=== PATIENT | male | born 1970 | race Caucasian/White ===

== ENCOUNTER 2024-04-10 11:09 | Outpatient (RCR) | payer OTHER, SELFPAY | END 2024-04-10 23:59 | disposition home or self-care (01) | LOC: RPT 11:09 | PROVIDERS: ATTENDING PHYSICIAN Surgery; FAMILY PHYSICIAN Internal Medicine | DX: R10.2 Pelvic and perineal pain (principal); Z73.6 Limitation of activities due to disability; R27.8 Other lack of coordination; M62.838 Other muscle spasm | CPT/HCPCS: 97014; 97112; 97140; 97163; 97530 ==

== ENCOUNTER 2024-05-01 12:15 | Outpatient (RCR) | payer OTHER, SELFPAY | END 2024-05-01 23:59 | disposition home or self-care (01) | LOC: RPT 12:15 | PROVIDERS: ATTENDING PHYSICIAN Surgery; FAMILY PHYSICIAN Internal Medicine | DX: R10.2 Pelvic and perineal pain (principal); Z73.6 Limitation of activities due to disability; R27.8 Other lack of coordination; M62.838 Other muscle spasm | CPT/HCPCS: 97014; 97112; 97140; 97530 ==

== ENCOUNTER 2024-05-29 12:09 | Outpatient (RCR) | payer OTHER, SELFPAY | END 2024-05-29 23:59 | disposition home or self-care (01) | LOC: RPT 12:09 | PROVIDERS: ATTENDING PHYSICIAN Surgery; FAMILY PHYSICIAN Internal Medicine | DX: R10.2 Pelvic and perineal pain (principal); Z73.6 Limitation of activities due to disability; R27.8 Other lack of coordination; M62.838 Other muscle spasm | CPT/HCPCS: 97014; 97112; 97140; 97530 ==

== ENCOUNTER 2024-07-10 12:11 | Outpatient (RCR) | payer OTHER, SELFPAY | END 2024-07-10 14:35 | disposition home or self-care (01) | LOC: RPT 12:11 | PROVIDERS: ATTENDING PHYSICIAN Surgery; FAMILY PHYSICIAN Internal Medicine | DX: R10.2 Pelvic and perineal pain (principal); Z73.6 Limitation of activities due to disability; R27.8 Other lack of coordination; M62.838 Other muscle spasm | CPT/HCPCS: 97014; 97112; 97140; 97530 ==

== ENCOUNTER 2025-01-25 08:38 | Outpatient (RCR) | payer OTHER, SELFPAY | END 2025-01-25 23:59 | disposition home or self-care (01) | LOC: RPT 08:38 | PROVIDERS: ATTENDING PHYSICIAN Surgery; FAMILY PHYSICIAN Internal Medicine | DX: K62.89 Other specified diseases of anus and rectum (principal); M62.89 Other specified disorders of muscle; Z73.6 Limitation of activities due to disability | CPT/HCPCS: 97163; 97530 ==